=== PATIENT | female | born 1955 | race Caucasian/White ===

== ENCOUNTER 2020-11-15 14:28 | Emergency (ER) | payer OTHER ==
[~2020-11-15 14:28] MED LIST: ASPIRIN CHEWABL81 MG PO; CELEXA40 MG PO; COLESTID1 GM PO; KEPPRA500 MG PO; NORCO 10-325 T1 EACH PO; NORCO 5-325 TA1 EACH PO; ONDANSETRON ODT4 MG SL; PERCOCET 5-3251 EACH PO; PREVACID30 MG PO; XANAX2 MG PO
[2020-11-15] MEDS ORDERED: NORCO 5-325 TA1 EACH PO ×2 (18:40→18:58)
[2020-11-16] MEDS ORDERED: CALCIUM + D SO1 EACH PO (16:34)
[2020-11-21] MEDS ORDERED: PERCOCET 5-3251 EACH PO (09:23)
== END 2020-11-15 19:13 | disposition home or self-care (01) ==
LOC: FER 14:28
DX: S52.611A Displaced fracture of right ulna styloid process, initial encounter for closed fracture (principal); S52.501A Unspecified fracture of the lower end of right radius, initial encounter for closed fracture; F17.210 Nicotine dependence, cigarettes, uncomplicated; W18.09XA Striking against other object with subsequent fall, initial encounter; Y92.009 Unspecified place in unspecified non-institutional (private) residence as the place of occurrence of the external cause
CPT/HCPCS: 73110; 73564; 73630

== ENCOUNTER → 2020-11-21 | Day surgery (SDC) | payer MEDICARE ==
[~2020-11-21] VITALS: Ht 163 cm; Wt 90.7 kg
[~2020-11-21] MED LIST changes: +CALCIUM + D SO1 EACH PO
[2020-11-21 12:47] LABS: HCT 44.8 % (37.0-47.0); HGB 14.6 g/dl (12.5-16.0); MCH 31.9 pg (25.0-31.0); MCHC 32.6 g/dL (32.0-36.0); MPV 10.8 fL (6.0-9.5); RBC 4.57 M/uL (4.20-5.40); RDW 12.8 % (11.5-14.0); WBC 5.8 K/uL (4.0-10.5)
[2020-11-21 13:16] LABS: ALBUMIN 3.6 g/dL (3.4-5.0); BILIRUBIN - TOTAL 0.4 mg/dL (0.2-1.0); BUN/CREAT RATIO (CALC) 12.7 RATIO; CREATININE 0.79 mg/dL (0.51-0.95); GLOBULIN (CALCULATION) 4.1 g/dL; POTASSIUM 4.5 mmol/L (3.5-5.1); TOTAL PROTEIN 7.7 g/dL (6.4-8.2)
== END | disposition home or self-care (01) ==
LOC: FAS 11:45
PROVIDERS: Orthopaedic Surgery
DX: S52.571A Other intraarticular fracture of lower end of right radius, initial encounter for closed fracture (principal); W19.XXXA Unspecified fall, initial encounter
CPT/HCPCS: 36415; 71045; 73100; 76000; 80053; 93005; C1713; C1769; J0690; J1100; J2250; J2405; J2704; J2795; J7120